=== PATIENT | male | born 1935 | race Caucasian/White ===

== ENCOUNTER 2019-09-30 07:13 | Emergency (ER) | payer MEDICARE, OTHER ==
[~2019-09-30] VITALS: Ht 165.1 cm; Wt 72.6 kg
--- NOTE | 2019-09-30 07:14 | NUR ---
ED Nurse Note: Pt walked in to ED accompanied by family members d/t s/p fall at home yesterday with complains of bilateral knee and LT hand pain. Pt is AOx4 noted with weakness; calm and cooperative. Placed on bed and hosp gown; ERMD at bedside. Pt denies head trauma/injury, loss of consciousness nor back pain.
--- NOTE | 2019-09-30 07:15 | NUR ---
Note [facility] in EDM - 09/30/19 at 0750 by MARIA L ED Nurse Note: Pt walked in to ED accompanied by family members d/t s/p fall at home yesterday with complains of bilateral knee and right hand pain. Pt is AOx4 noted with weakness; calm and cooperative. Placed on bed and gown; ERMD at bedside. Pt denies head trauma/injury, loss of consciousness nor back pain.
[2019-09-30] MEDS ORDERED: Tetanus/Diptheria/Pertussis IM ONE (07:30)
[2019-09-30] MEDS ORDERED: IPRATROPIU0.2 MG/1 M HHN (07:36)
[2019-09-30] MEDS ORDERED: FLOMAX0.4 MG ORAL (07:36)
[2019-09-30] MEDS ORDERED: AKTOB1 DROP BOTH EYES (07:36)
[2019-09-30] MEDS ORDERED: METFORMIN HCL500 M1 ORAL (07:36)
[2019-09-30] MEDS ORDERED: ATORVASTATIN CA80 MG ORAL (07:36)
[2019-09-30] MEDS ORDERED: DONEPEZIL HCL10 M2 ORAL (07:36)
[2019-09-30] MEDS ORDERED: OMEPRAZOLE40 M1 ORAL (07:36)
[2019-09-30] MEDS ORDERED: VITAMIN B-12500 MCG ORAL (07:36)
--- NOTE | 2019-09-30 07:36 | Emergency Room Report ---
History of Present Illness General Chief Complaint: Multiple Trauma/Fall Source: Patient, Family Member, Caregiver Present Illness HPI Patient is an 84-year-old male past medical history of diabetes, hyperlipidemia , Alzheimer's, BPH and constipation who presents to the ER status post fall. Patient states that he was running towards the bus stop yesterday when he slipped and fell landing onto his knees and left hand. He denies any head trauma or loss of consciousness. Patient's last tetanus shot is unknown. Patient denies any prodromal symptoms such as dizziness, chest pain, shortness of breath or focal weakness. Patient denies any abdominal pain, nausea or vomiting. Patient states that he has an old injury to his right pinky finger that is unchanged. Patient is ambulatory and accompanied by his and caregiver. Allergies: Coded Allergies: No Known Allergies (Verified Allergy, Unknown, 02/12/08) Patient History Reviewed Nursing Documentation: PMH: Agreed; PSxH: Agreed Nursing Documentation-PMH Past Medical History: No History, Except For Hx Diabetes: Yes Review of Systems All Other Systems: negative except mentioned in HPI Physical Exam Vital Signs Date Time Temp Pulse Resp B/P (MAP) Pulse Ox O2 Delivery O2 Flow Rate FiO2 09/30/19 07:16 97.7 74 17 108/58 (75) 97 Room Air Sp02 EP Interpretation: reviewed, normal General Appearance: no apparent distress, alert, GCS 15, non-toxic Head: normocephalic, atraumatic Eyes: bilateral eye normal inspection, bilateral eye PERRL ENT: hearing grossly normal, normal pharynx, no angioedema, normal voice Neck: full range of motion, supple/symm/no masses Respiratory: chest non-tender, lungs clear, normal breath sounds, speaking full sentences Cardiovascular #1: regular rate, rhythm, no edema Cardiovascular #2: 2+ carotid (R), 2+ carotid (L), 2+ radial (R), 2+ radial (L) , 2+ dorsalis pedis (R), 2+ dorsalis pedis (L) Gastrointestinal: normal bowel sounds, non tender, soft, non-distended, no guarding, no rebound Rectal: deferred Genitourinary: normal inspection, no CVA tenderness Musculoskeletal: other - Diffuse thoracic and lumbar tenderness to palpation with no step-offs and no obvious deformity, bilateral anterior knee abrasion with ecchymosis and edema normal range of motion, no obvious deformity left thumb abrasion with mild diffuse hand tenderness to palpation, normal range of motion and immediate cap refill, right pinky finger held in flexion patient states it is chronic from old injury and surgery Neurologic: alert, motor strength/tone normal, oriented x3, sensory intact, responsive, speech normal Psychiatric: judgement/insight normal, memory normal, mood/affect normal, no suicidal/homicidal ideation Skin: no rash Lymphatic: no adenopathy Medical Decision Making Diagnostic Impression: Primary Impression: Fall Additional Impressions: Knee abrasion Hand sprain ER Course Neurologic examinations demonstrate no acute fractures. Local wound care performed. Patient updated on his tetanus vaccination. Topical antibiotics given. After discussing risks and benefits of further diagnostics, treatment plans, as well as indications for and risks of admission, the patient is agreeable to being discharged home. I have explained that their evaluation and treatment in the emergency department today is an important step towards them achieving better health but that their evaluation today is not intended to replace further evaluation and treatment by a physician in their local clinic. I have explained that while the current findings suggest no immediate life threatening emergency they will require further evaluation and treatment by a physician of their choice in their area. They understand that it will be necessary for them to review the final reports of their ED visit with their clinic physician. We have reviewed indications for return to the Emergency Department. I have explained that additional time may need to pass and/or additional testing as an outpatient may be necessary before a definitive diagnosis can be made. They tell me they are willing to follow up as instructed within the timeframe I recommend. They appear to understand what we discussed. Additionally they understand that if they are unable to be seen by an outpatient physician they are welcome, and in fact should, return to the Emergency Department for a repeat evaluation. The patient is stable at time of discharge. Last Vital Signs Date Time Temp Pulse Resp B/P (MAP) Pulse Ox O2 Delivery O2 Flow Rate FiO2 09/30/19 07:16 97.7 74 17 108/58 (75) 97 Room Air Disposition: HOME, SELF-CARE Condition: Stable Scripts Neomycin/Polymyxin/Bacitracin* (Triple Antibiotic Ointment*) 28 Gm Oint...g. 30 GM TOPIC DAILY, #1 GM Apply a thin film (amount equal to the surface area of the fingertip) to the affected area daily. Prov: Nadine He M.D. 09/30/19 Additional Instructions: Patient discharged in stable improved condition with outpatient follow-up and strict return precautions Nadine He M.D. Sep 30, 2019 07:36
[2019-09-30] MEDS: Bacitracin Oint 15gm Tube TOPIC SCH ×2 (07:38→07:49)
[2019-09-30 07:45] VITALS: BP 108/58
--- NOTE | 2019-09-30 08:06 | NUR ---
ED Nurse Note: Pt went on CT via [facility] accompanied by keaton.
--- NOTE | 2019-09-30 08:55 | NUR ---
ED Nurse Note: Pt returned from CT, on stable condition.
--- NOTE | 2019-09-30 09:31 | Diagnostic Imaging Report ---
Indication: Headache Technique: Contiguous 5 mm thick transaxial imaging of the head obtained in a Siemens Sensation [address] scanner. Soft tissue and bone windows generated. Automatic Exposure Control was utilized. Total Dose length Product (DLP): 1045mGycm CT Dose Index Volume (CTDIvol): 53.4 mGy Comparison: none Findings: There is moderate prominence of the ventricles, basal cisterns, and cerebral sulci consistent with atrophy. Moderate, nonspecific, white matter hypoattenuation is noted throughout the brain consistent with chronic small vessel disease. There is a cavum septum pellucidum. There is no midline shift, edema, acute hemorrhage, mass effect, or abnormal extra-axial fluid collections. Bones are unremarkable. Impression: No acute intracranial bleed, mass effect or edema. Moderate atrophy of the brain. Evidence of chronic small vessel disease involving white matter tracts. The CT scanner at [facility] is accredited by the [employer] and the scans are performed using dose optimization techniques as appropriate to a performed exam including Automatic Exposure control.
--- NOTE | 2019-09-30 09:36 | Diagnostic Imaging Report ---
Indication: Back pain Technique: Continuous helical transaxial imaging of the lumbar spine was obtained. Coronal 2-D reformats were also obtained. Study obtained in a Siemens sensation [address] Total Dose length Product (DLP): 489.[address] Dose Index Volume (CTDIvol): 12.8 mGy Comparison: None Findings: There is no evidence of an acute fracture or malalignment. Multilevel narrowing of the intervertebral discs and circumferential vertebral endplate osteophytes are demonstrated. Multilevel sclerosis and hypertrophy of the facet joints demonstrated. There is the suggestion of spinal stenosis in the lower part of the lumbar spine. There is transitional anatomy at the lumbosacral junction. Aorta is moderately calcified. Partially imaged bilateral renal hypodensities are present. These may be cysts but not adequately evaluated on the current study. IMPRESSION: No evidence of acute injury. Moderate degenerative changes of the lumbar spine as described above. Other incidental findings as above. The CT scanner at [facility] is accredited by the [employer] and the scans are performed using dose optimization techniques as appropriate to a performed exam including Automatic Exposure control.
--- NOTE | 2019-09-30 09:44 | Diagnostic Imaging Report ---
Indication: Back pain Technique: Continuous helical transaxial imaging of the thoracic spine was obtained from the lung bases to the pubic symphysis. No IV contrast was administered. Coronal 2-D reformats were also obtained. Study obtained in a Siemens sensation [address] Total Dose length Product (DLP): 489.[address] Dose Index Volume (CTDIvol): 12.8 mGy Comparison: None Findings: There is a scoliosis slightly convex to the right. Bones are osteopenic. Multilevel vertebral endplate osteophytes some bridging the vertebra noted. Multilevel loss of height of the intervertebral discs demonstrated. No acute fractures seen. Multilevel hypertrophy of the facets demonstrated. Aorta is moderately calcified. Mild reticular densities demonstrated at the left lung base nonspecific. No paravertebral or para spinous edema or hematoma identified. IMPRESSION: No acute injury appreciated. Degenerative changes as described above. Scoliosis. Arterial vascular disease. Left basilar reticular densities nonspecific The CT scanner at [facility] is accredited by the [employer] and the scans are performed using dose optimization techniques as appropriate to a performed exam including Automatic Exposure control.
--- NOTE | 2019-09-30 09:50 | Diagnostic Imaging Report ---
Indication: Right knee Pain 3 views of the right knee were obtained. Findings: No acute fracture, malalignment, or joint effusion are identified. The bones are osteopenic. There is mild prepatellar soft tissue swelling. Impression: Negative for acute fracture. Prepatellar soft tissue swelling may be related to trauma or prepatellar bursitis.
--- NOTE | 2019-09-30 09:52 | Diagnostic Imaging Report ---
INDICATION: Knee Pain COMPARISON: None 3 views of the left knee were obtained. FINDINGS: No acute fracture, malalignment, or joint effusion are identified. Bones are osteopenic. Mild patellofemoral osteophytes are noted system with mild arthrosis. Impression: Negative for acute injury
--- NOTE | 2019-09-30 09:55 | Diagnostic Imaging Report ---
Indication: left hand pain. Comparison: None Findings: 3 views of the left hand were obtained. Normal alignment is demonstrated. No acute fractures, erosions, or periosteal reaction are seen. Bones are diffusely osteopenic. Soft tissues are unremarkable. Generalized narrowing of the joint space demonstrated at the wrist, carpal is and digits consistent with osteoarthritis. Impression: No acute findings. Osteoarthritis
[2019-09-30] MEDS ORDERED: NEOSPORIN OINT30 GM TOPIC (10:02)
[2019-09-30 10:10] VITALS: BP 110/60
--- NOTE | 2019-09-30 10:10 | NUR ---
ER DISCHARGE NOTE: Patient is cleared to be discharged per ERMD, pt is aox4, on room air, with stable vital signs. pt was given dc and prescription instructions, pt was able to verbalize understanding, pt id band removed. pt is able to ambulate with steady gait. pt took all belongings.
== END 2019-09-30 10:10 | disposition home or self-care (01) ==
LOC: EMR 07:30
DX: S80.212A Abrasion, left knee, initial encounter (principal); S80.211A Abrasion, right knee, initial encounter; S60.312A Abrasion of left thumb, initial encounter; S63.92XA Sprain of unspecified part of left wrist and hand, initial encounter; W01.0XXA Fall on same level from slipping, tripping and stumbling without subsequent striking against object, initial encounter; Y93.02 Activity, running; Y92.521 Bus station as the place of occurrence of the external cause; Z23 Encounter for immunization; E11.9 Type 2 diabetes mellitus without complications; M19.042 Primary osteoarthritis, left hand; R51 Headache; M54.9 Dorsalgia, unspecified; G31.9 Degenerative disease of nervous system, unspecified; M41.82 Other forms of scoliosis, cervical region
CPT/HCPCS: 70450; 72128; 72131; 90471; 90715; 99284